=== PATIENT | male | born 1935 | race Caucasian/White ===

== ENCOUNTER 2022-03-25 14:15 | Emergency (ER) | payer OTHER ==
[~2022-03-25] VITALS: Ht 182.9 cm; Wt 91.0 kg
[2022-03-25 15:30] LABS: CHLORIDE 104 mEq/L (98-107)
[2022-03-25 15:51] LABS: BASOPHILS % 0.3 % (0.0-2.0); EOSINOPHILS % 2.5 % (0.0-5.0); HEMOGLOBIN. 11.8 g/dL (14.0-18.0); LYMPHOCYTES % 31.4 % (20.0-50.0); MEAN CORPUSCULAR HEMOGLOBIN 34.6 pg (28.0-32.0); MEAN CORPUSCULAR VOLUME 100.2 fL (80.0-94.0); MEAN PLATELET VOLUME 7.4 fl (7.4-10.4); MONOCYTES % 2.7 % (2.0-8.0); NEUTROPHILS % 63.1 % (40.0-76.0); PLATELET 143 x1000/uL (130-400); RED CELL DISTRIBUTION WIDTH 14.4 % (11.6-14.6)
[2022-03-25] MEDS ORDERED: IPRATROPIUM/ALBUTEROL 0.5-3(2.5)MG/3ML NEB HHN ONE (19:45)
[2022-03-25] MEDS ORDERED: IOHEXOL-350 100 ML BOTTLE ONE (19:57)
[2022-03-25] MEDS ORDERED: ALBU6.7H15 INH (20:43)
[2022-03-25 20:45] VITALS: BP 154/68
== END 2022-03-25 20:49 | disposition home or self-care (01) ==
LOC: ER 14:15
DX: J44.1 Chronic obstructive pulmonary disease with (acute) exacerbation (principal); I48.91 Unspecified atrial fibrillation; E11.9 Type 2 diabetes mellitus without complications; I10 Essential (primary) hypertension; Z96.642 Presence of left artificial hip joint; Z96.698 Presence of other orthopedic joint implants
CPT/HCPCS: 36415; 71045; 71275; 80053; 83880; 84484; 85025; 85379; 93005; 93970; 94640; 99285; Q9967; Z7610